=== PATIENT | male | born 1970 | race Caucasian/White ===

== ENCOUNTER 2025-03-30 13:42 | Emergency (ER) | payer OTHER, SELFPAY ==
[2025-03-30 13:43] VITALS: BP 144/94; PULSE 57; RESP 16; TEMP 35.9; O2SAT 100; BMI 27.7
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
[2025-03-30] MEDS: Ondansetron 4 MG/2 ML Vial IV ×2 (15:13→18:46)
[2025-03-30] MEDS: Ketorolac 30 MG/ML Syringe IV (15:15)
[2025-03-30] MEDS: HYDROmorphone 1 MG/ML Syringe IV ×2 (15:16→16:37)
[2025-03-30 15:42] VITALS: BP 132/83
[2025-03-30] MEDS: Metaxalone 800 MG Tablet PO (15:53)
[2025-03-30 16:18] VITALS: BP 132/83; PULSE 57; RESP 16; TEMP 35.9; O2SAT 100
[2025-03-30 17:00] VITALS: BP 134/72; PULSE 54; O2SAT 98
[2025-03-30] MEDS: Ondansetron ODT 4 MG Tablet 8 MG PO (18:18)
[2025-03-30 18:57] VITALS: BP 159/92; PULSE 56
[2025-03-30] MEDS: Metoclopramide 10 MG/2 ML Vial 5 MG IV (19:35)
--- NOTE | 2025-03-30 19:50 | CT_ITS ---
PROCEDURE: SPINE LUMBAR WITHOUT CONTRAST 03/30/2025 REASON FOR EXAM: ATRAUMATIC PAIN TECHNIQUE: Lumbar spine CT without contrast. Coronal and Sagittal reconstruction series were provided. One or more dose reduction techniques were used (e.g., Automated exposure control, adjustment of the mA and/or kV according to patient size, use of iterative reconstruction technique COMPARISON: None. FINDINGS: Vertebrae: Vertebral body heights are maintained. L1 Schmorl's nodes with mild herniation. Disc spaces are maintained. No acute fracture or traumatic subluxation. Alignment: Mild reversal of the lumbar lordosis. Scattered degenerative changes without high-grade canal stenosis or neural foraminal narrowing. Sacrum: Unremarkable sacrum. Paraspinal musculature is within normal limits. CT/Spine Lumbar without Contrast IMPRESSION: No acute fracture or traumatic subluxation [facility]
[2025-03-30 21:00] VITALS: BP 128/82; PULSE 50; RESP 16; TEMP 35.9; O2SAT 96
== END 2025-03-30 21:18 | disposition home or self-care (01) ==
PROVIDERS: Emergency Provider Emergency Medicine; Visit Provider Emergency Medicine
DX: M54.9 Dorsalgia, unspecified (principal); M62.830 Muscle spasm of back; X50.9XXA Other and unspecified overexertion or strenuous movements or postures, initial encounter; Y93.89 Activity, other specified
CPT/HCPCS: 72131; 96374; 96375; 96376; 99283; A4216; J2405